=== PATIENT | female | born 1985 | race Caucasian/White ===

== ENCOUNTER 2017-04-10 10:56 | Emergency (ER) | payer BC, OTHER ==
[~2017-04-10] VITALS: Ht 165.1 cm; Wt 90.0 kg
[2017-04-10 11:08] VITALS: Ht 165.1 cm; Wt 90.0 kg
[2017-04-10] MEDS ORDERED: IBUP-1542 PO (11:43)
[2017-04-10] MEDS ORDERED: AMOX500C2 PO (11:43)
[2017-04-10] MEDS ORDERED: CETI10CA PO (11:44)
[2017-04-10] MEDS ORDERED: BENZ100C70 PO (11:44)
[2017-04-10] MEDS ORDERED: PSEU120T51 PO (11:44)
--- NOTE | 2017-04-10 11:51 | ERD ---
ER Documentation Chief Complaint Chief Complaint sore throat, faraz ear pain HPI Patient is a 31-year-old female who presents to the ED for concerns of bilateral ear pain, sore throat and cough 3 days. Patient reports tactile fevers at home. Patient states that her cough is primarily dry however occasionally she has clear sputum production. Patient denies any chest pain or shortness of breath. Patient denies any abdominal pain, nausea, vomiting or diarrhea. Patient states that she has throat pain with swallowing. Patient denies any drooling, trismus or hyperextension of her neck. Patient does report some voice hoarseness. Patient denies any headache, neck pain or neck stiffness. Patient reports taking NyQuil and TheraFlu for symptoms. Patient denies any sick contacts. No recent travel. She does admit to receiving the flu vaccine this year. ROS All systems reviewed and are negative except as per history of present illness. Medications Home Meds Active Scripts Pseudoephedrine Hcl (Sudafed 12 Hour) 120 Mg Tablet.sa, 120 MG PO BID, #14 Prov:EMELIA JERRY PA-C 04/10/17 Cetirizine Hcl* (Zyrtec*) 10 Mg Capsule, 10 MG PO DAILY, #15 TAB.CHEW Prov:EMELIA JERRY PA-C 04/10/17 Benzonatate* (Tessalon Perle*) 100 Mg Capsule, 100 MG PO Q8H Y for COUGH, #20 CAP Prov:EMELIA JERRY PA-C 04/10/17 Amoxicillin* (Amoxicillin*) 500 Mg Cap, 500 MG PO BID for 10 Days, CAP Prov:EMELIA JERRY PA-C 04/10/17 Ibuprofen* (Motrin*) 600 Mg Tab, 600 MG PO Q6, #20 TAB Prov:EMELIA JERRY PA-C 04/10/17 PMhx/Soc Medical and Surgical Hx: pt denies Medical Hx, pt denies Surgical Hx Hx Alcohol Use: Yes (Occasional drinker) Hx Substance Use: Yes (Marijuana) Hx Tobacco Use: No Smoking Status: Never smoker Physical Exam Vitals Vital Signs Date Time Temp Pulse Resp B/P Pulse Ox O2 Delivery O2 Flow Rate FiO2 04/10/17 11:08 99.2 89 18 140/89 99 Physical Exam GENERAL: Well-developed, well-nourished female. Appears in no acute distress. Peaking in full sentences. HEAD: Normocephalic, atraumatic. No deformities or ecchymosis. EYE: Pupils equal, round, and reactive to light. EOMs intact. No conjunctival erythema. No eye discharge. ENT: External ear without any masses or tenderness. Auditory canals clear bilaterally. TM visualized bilaterally, erythematous and bulging bilaterally. No mastoid tenderness bilaterally.. Nasal mucosa pink with no discharge. Oropharynx is erythematous without any tonsillar erythema or exudates. No uvula deviation. No kissing tonsils. NECK: Supple. No meningismus. Normal ROM of the neck. LUNG: Clear to auscultation bilaterally. No rhonchi, wheezing, rales or coarse breath sounds. HEART: Regular rate and rhythm. No murmurs, rubs or gallops. EXTREMITES: Equal pulses bilaterally. No peripheral clubbing, cyanosis or edema. No unilateral leg swelling. NEUROLOGIC: Alert and oriented to person, place and time. Moving all four extremities. 5/5 strength in all extremities. Normal speech. Steady gait. SKIN: Normal color. Warm and dry. No rashes or lesions. Procedures/MDM MEDICAL DECISION MAKING: This is a 31-year-old female who presents to the ED for concerns of bilateral ear pain, throat pain, cough and tactile fevers 3 days. Vital signs were reviewed. Patient was afebrile. Patient was not hypoxic. Ear exam was consistent with bilateral otitis media. Lung exam was normal. Given these findings, the patient's presentation is most consistent with bilateral otitis media and viral URI. Low suspicion for CHF, pleural effusion, pneumonia, meningitis, sinusitis, otitis externa, strep pharyngitis, epiglottitis or peritonsillar abscess. PRESCRIPTIONS: Ibuprofen, Zyrtec, Tessalon Perles, amoxicillin, Sudafed DISCHARGE: At this time, patient is stable for discharge and outpatient management. Supportive therapies such as OTC throat lozenges, salt water gurgles, popsicles and jello discussed. I have instructed the patient to follow-up with his/her primary care physician in 1-2 days. I have instructed the patient to promptly return to the ER for any new or worsening symptoms including increased pain, swelling, fever, nausea, vomiting, weakness or difficulty breathing. The patient and/or family expressed understanding of and agreement with this plan. All questions were answered. Home care instructions were provided. Disclaimer: Inadvertent spelling and grammatical errors are likely due to EHR/ dictation software use and do not reflect on the overall quality of patient care. Also, please note that the electronic time recorded on this note does not necessarily reflect the actual time of the patient encounter. Departure Diagnosis: Primary Impression: Acute otitis media, bilateral Additional Impression: Viral URI Condition: Stable Patient Instructions: Otitis Media, Abx Tx (Adult), Uri, Viral, No Abx (Adult) Additional Instructions: Call your primary care doctor TOMORROW for an appointment during the next 1-2 days.See the doctor sooner or return here if your condition worsens before your appointment time. EMELIA JERRY PA-C Apr 10, 2017 11:51
== END 2017-04-10 11:52 | disposition home or self-care (01) ==
LOC: FTE 10:56
DX: H66.93 Otitis media, unspecified, bilateral (principal); J06.9 Acute upper respiratory infection, unspecified
CPT/HCPCS: 99284

== ENCOUNTER 2017-12-16 17:15 | Inpatient (IN) | END 2017-12-19 15:32 | disposition home or self-care (01) | DRG 775 ==